=== PATIENT | female | born 1945 | race Caucasian/White ===

== ENCOUNTER 2016-12-13 09:49 | Emergency (ER) | payer MEDICARE, BC ==
[~2016-12-13] VITALS: Ht 157.5 cm; Wt 68.2 kg
[~2016-12-13 09:49] MED LIST: CHOL20003 PO; LEVO112T2 PO; MAGN300C2 PO; PRAV40TA76 PO; SENN1TAB PO
[2016-12-13 09:59] VITALS: Ht 157.5 cm; Wt 68.2 kg
[2016-12-13] MEDS ORDERED: LORAZEPAM 2 MG INJ IV ONE (11:30)
[2016-12-13 11:32] LABS: ADD SCAN DIFF NO
[2016-12-13 11:45] LABS: BASOPHIL # 0.1 10^3/ul (0.0-0.1); BASOPHILS % 0.7 % (0.0-2.0); EOSINOPHILS # 0.2 10^3/ul (0.0-0.5); EOSINOPHILS % 2.8 % (0.0-7.0); HEMATOCRIT 40.6 % (37.0-47.0); HEMOGLOBIN 13.1 g/dl (12.0-16.0); LYMPHOCYTES # 2.1 10^3/ul (0.8-2.9); LYMPHOCYTES % 23.9 % (15.0-51.0); MEAN CORPUSCULAR HEMOGLOBIN 29.8 pg (29.0-33.0); MEAN CORPUSCULAR HGB CONC 32.3 g/dl (32.0-37.0); MEAN CORPUSCULAR VOLUME 92.5 fl (82.0-101.0); MONOCYTE # 0.9 10^3/ul (0.3-0.9); MONOCYTES % 10.3 % (0.0-11.0); NEUTROPHIL # 5.3 10^3/ul (1.6-7.5); NEUTROPHILS % 61.9 % (39.0-77.0); PLATELET COUNT 468 10^3/UL (140-415); RED BLOOD COUNT 4.39 10^6/ul (4.20-5.40); RED CELL DISTRIBUTION WIDTH 13.4 % (11.5-14.5); WHITE BLOOD COUNT 8.6 10^3/ul (4.8-10.8)
[2016-12-13 11:48] LABS: POTASSIUM 4.1 mmol/L (3.5-5.1)
[2016-12-13 11:50] LABS: BILIRUBIN,INDIRECT 0.3 mg/dl (0-1.1); BILIRUBIN,TOTAL 0.3 mg/dl (0.2-1.3); CREATININE 0.53 mg/dl (0.44-1.00); PARTIAL THROMBOPLASTIN TIME 35.6 Sec (25.0-35.0)
[2016-12-13 11:51] LABS: CALCIUM 9.6 mg/dl (8.4-10.2)
--- NOTE | 2016-12-13 12:29 | RADRPT ---
PROCEDURE: US Lower extremity Venous. CLINICAL INDICATION: Right leg pain TECHNIQUE: Multiple sonographic images of the right lower extremity deep venous system was obtaine d utilizing grayscale, color-flow, compressive sonography and doppler imaging with augmentation. Th e images were reviewed on a PACS workstation. COMPARISON: None. FINDINGS: There is normal compressibility and flow within the right common femoral, superficial femoral, poste rior tibial, peroneal and popliteal veins. RPTAT: AA IMPRESSION: No sonographic evidence for deep venous thrombosis. .Osmar Yoder MD, MD Date Time Electronically viewed and signed by .Osmar Yoder MD, on 12/13/2016 12:29 .S/
[2016-12-13 12:45] LABS: INR 0.99; PROTIME 13.1 Sec (12.2-14.2)
--- NOTE | 2016-12-13 14:45 | ERD ---
ER Documentation Chief Complaint Date/Time DATE: 12/13/16 TIME: 14:38 Chief Complaint BROUGHT IN VIA PRIVATE AMBULANCE DUE TO RIGHT UPPER LEG PAIN HPI This is a very pleasant 71-year-old female that presents to the emergency department from [facility] where she has been for the past several weeks recovering from a syncope episode that resulted in a T12 compression fracture. The patient underwent multiple MRIs and a significant workup at [facility] at the onset of the syncope episode. She was seen by the orthopedic surgeon Dr. Mcqueen who is placed the patient in a back brace. The patient had repeat x-rays taken last week with her normal follow-up was instructed to continue to wear the brace for the next several weeks. The patient indicates that she presents to the emergency department today as this morning upon awakening she developed a severe pain in her right leg. She stated the pain began in her right buttocks and started to radiate down the lateral aspect of her right leg. She denies any saddle anesthesia. She no changes in her bladder or bowel frequency. She also developed some cramping of her left calf and was instructed to immediately come to the emergency department to be further evaluated. She has had no fevers no shaking or chills. She denies any shortness of breath at rest or exertion. She has no chest pain or pressure that radiates to the neck arm back or jaw ROS All systems reviewed and are negative except as per history of present illness. Medications Home Meds Reported Medications Magnesium Oxide/Mag Aa Chelate (Magnesium 300 Mg Capsule) 300 Mg Capsule, 300 MG PO 04/07/14 Pravastatin Sodium* (Pravastatin Sodium*) 40 Mg Tablet, 40 MG PO HS, TAB 04/07/14 Cholecalciferol (Vitamin D3) (VITAMIN D-3) 2,000 Unit Capsule, 2000 UNIT PO DAILY 04/07/14 Levothyroxine Sodium* (Synthroid*) 112 Mcg Tablet, 112 MCG PO AC BREAKFAST, TAB 04/07/14 Discontinued Reported Medications Sennosides/Docusate Sodium (STOOL SOFTENER TABLET) 1 Each Tablet, 1 EACH PO BID 04/07/14 Allergies Allergies: Uncoded Allergies: SULFA (Allergy, Unknown, 12/13/16) PMhx/Soc History of Surgery: Yes (04/07 S/P R JAS) Anesthesia Reaction: No Hx Neurological Disorder: No Hx Respiratory Disorders: No Hx Cardiac Disorders: No Hx Psychiatric Problems: No Hx Miscellaneous Medical Probl: Yes (ASTHMA, OSEOPOROSIS, DEPRESSION, HLD, HYPOTHYROID) Hx Alcohol Use: No Hx Substance Use: No Hx Tobacco Use: Yes Smoking Status: Current some day smoker Physical Exam Vitals Vital Signs Date Time Temp Pulse Resp B/P Pulse Ox O2 Delivery O2 Flow Rate FiO2 12/13/16 14:00 70 18 127/93 97 Room Air 12/13/16 09:59 98.1 90 18 124/98 98 Physical Exam Constitutional:Well-developed. Well-nourished. HEENT:Normocephalic. Atraumatic.Pupils were equal round reactive to light. Moist mucous membranes.No tonsillar exudates. Neck: No nuchal rigidity. No lymphadenopathy. No posterior cervical spine tenderness or step-offs. Respiratory: Not using accessory muscles of respiration.Lungs were clear to auscultation bilaterally. No rhonchi. No rales. No wheezing. Cardiovascular: Regular rate regular rhythm.No murmurs. No rubs were appreciated.S1, S2 normal. Distal pulses are palpable 2+ bilaterally. GI: Abdomen was soft. Nontender. Non Distended. No pulsatile abdominal masses or bruits. No rebound. No guarding. Bowel sounds were present and normal. Muscle skeletal: Full range of motion of both the upper and lower extremities bilaterally.Normal muscle tone.No assymetrical calf tenderness. Tenderness of the right calf with negative Homans sign. No tenderness with palpation or percussion of the thoracic or lumbar spinous processes and patient currently is in a back brace for her T12 compression fracture. Straight leg test positive on the right. Skin: No petechia, no purpura. No lesions on the palms or the soles of the feet. No maculopapular rash. No erythema warmth tenderness fluctuance or induration over the right calf or right upper extremity. NEURO: Patient was alert, awake, orientated x3.No facial droop. Gait not observed as patient is not able to ambulate at this time due to her compression fracture.Speech had regular rate and rhythm. No focal neurological deficits. Result Diagram: 12/13/16 1105 12/13/16 1105 Results 24 hrs Laboratory Tests Test 12/13/16 11:05 White Blood Count 8.610^3/ul Red Blood Count 4.3910^6/ul Hemoglobin 13.1g/dl Hematocrit 40.6% Mean Corpuscular Volume 92.5fl Mean Corpuscular Hemoglobin 29.8pg Mean Corpuscular Hemoglobin Concent 32.3g/dl Red Cell Distribution Width 13.4% Platelet Count 87139^3/UL Mean Platelet Volume 9.0fl Neutrophils % 61.9% Lymphocytes % 23.9% Monocytes % 10.3% Eosinophils % 2.8% Basophils % 0.7% Nucleated Red Blood Cells % 0.0/100WBC Neutrophils # 5.310^3/ul Lymphocytes # 2.110^3/ul Monocytes # 0.910^3/ul Eosinophils # 0.210^3/ul Basophils # 0.110^3/ul Nucleated Red Blood Cells # 0.010^3/ul Prothrombin Time 13.1Sec Prothrombin Time Ratio 1.0 INR International Normalized Ratio 0.99 Activated Partial Thromboplast Time 35.6Sec Sodium Level 137mmol/L Potassium Level 4.1mmol/L Chloride Level 101mmol/L Carbon Dioxide Level 28mmol/L Anion Gap 12 Blood Urea Nitrogen 9mg/dl Creatinine 0.53mg/dl Glucose Level 111mg/dl Calcium Level 9.6mg/dl Total Bilirubin 0.3mg/dl Direct Bilirubin 0.00mg/dl Indirect Bilirubin 0.3mg/dl Aspartate Amino Transf (AST/SGOT) 20IU/L Alanine Aminotransferase (ALT/SGPT) 21IU/L Alkaline Phosphatase 155IU/L Total Protein 8.0g/dl Albumin 4.0g/dl Globulin 4.00g/dl Albumin/Globulin Ratio 1.00 Current Medications Medications (Trade) Dose Ordered Sig/Carin Route PRN Reason Start Time Stop Time Status Last Admin Dose Admin Lorazepam (Ativan) 1 mg ONCE ONCE IV 12/13/16 11:30 12/13/16 11:31 DC 12/13/16 11:24 Procedures/MDM This is a very pleasant 71-year-old female presents to the emergency department with back pain radiating to the right leg. My differential diagnosis included but was not limited to spinal origins of the pain such as fracture, osteomyelitis, epidural abscess, neoplasm, spondylolishtesis, discogenic, cauda equina syndrome or musculoligamentous. Nonspinal causes such as AAA, upper UTI, renal colic, aortic dissection, abdominal neoplasm were also considered as an etiology into their pain. The patient no physical exam findings to suggest cellulitis. Venous duplex ultrasound the right lower extremity or and reviewed by myself indicated there is no evidence of deep vein thrombosis. Given that the patient has a known history of compression fracture I did obtain an MRI of the thoracic and lumbar spine and there is no evidence of cord compression. I explained to the patient that her symptoms could be a result of radiculopathy from the compression fracture and sciatica. There is no leukocytosis. The patient was refusing analgesic medication at this time. I did feel she can be safely discharged back to her rehab facility. Observation Note: Time: 4 hours Family Hx: No Hypertension Evaluation: Multiple exams showed improving symptoms and no evidence of cauda equina syndrome Departure Diagnosis: Primary Impression: Sciatica of right side Additional Impression: Lumbar radiculopathy, acute Condition: Serious JERRELL HARRIS Dec 13, 2016 14:45
--- NOTE | 2016-12-13 15:53 | RADRPT ---
PROCEDURE: MRI Thoracic spine without contrast CLINICAL INDICATION: BACK PAIN TECHNIQUE: An MRI of the thoracic spine was performed on a high resolution MRI scanner utilizing t he following sequences: Sagittal and axial T1 weighted, sagittal and axial T2 weighted, and sagitta l T2 fat suppression. COMPARISON: None FINDINGS: Partially imaged reversal of the cervical lordosis with multilevel cervical spinal canal stenosis. Normal thoracic kyphosis. Acute moderate T12 compression fracture with 2 mm bony retropulsion. There is 40% loss of vertebral height. No significant spinal canal stenosis. Heterogeneous appearance of the bone marrow is nonsp ecific. The thoracic cord demonstrates normal contour and signal intensity. No evidence of cord contusion or cord edema. Multilevel thoracic degenerative changes. IMPRESSION: Acute moderate T12 compression fracture with 2 mm bony retropulsion. No significant thoracic spinal canal stenosis. No evidence of cord contusion or cord compression. Multilevel thoracic degenerative changes. Partially imaged reversal of the cervical lordosis with multilevel cervical spinal canal stenosis. RPTAT: AA .Abraham Arguello MD, MD Date Time Electronically viewed and signed by .Abraham Arguello MD, on 12/13/2016 15:53 .T/
--- NOTE | 2016-12-13 15:56 | RADRPT ---
PROCEDURE: MRI lumbar spine without contrast CLINICAL INDICATION: Back pain TECHNIQUE: An high-resolution MRI of the lumbar spine was performed utilizing the following sequen nika: Sagittal and axial T1 weighted, sagittal and axial T2 weighted, and sagittal fat suppressed T2 . COMPARISON: None FINDINGS: Acute moderate T12 compression fracture. No acute lumbar compression fracture. Nonspecific heterogen eous marrow signal intensity. The conus medullaris terminates at L1-2. L1 - L2: The disk is preserved in height. There is no significant disk protrusion, spinal canal or foraminal stenosis. Facet arthropathy. L2 - L3: Mild disk height loss. Small disk osteophyte complex and facet arthropathy. No signific ant spinal canal stenosis. Mild bilateral foraminal narrowing. L3 - L4: Mild disk height loss and grade 1 anterolisthesis. Mild bilateral foraminal narrowing. Facet arthropathy. Borderline, mild spinal canal narrowing. L4 - L5: Mild disk height loss. Small disk bulge with central disk annular fissure. Combined wi th facet arthropathy, there is mild bilateral foraminal narrowing. No significant spinal canal sten osis. L5 - S1: Small disk bulge with central disk annular fissure. No significant spinal canal or digna inal narrowing. Facet arthropathy. Paraspinal soft tissues are unremarkable. IMPRESSION: Acute moderate T12 compression fracture. No acute lumbar compression fracture. Grade 1 anterolisthesis of L3-4. No high-grade spinal canal stenosis. Degenerative changes are detailed in the findings RPTAT: AA .Abraham Arguello MD, Date Time Electronically viewed and signed by .Abraham Arguello MD, on 12/13/2016 15:56 .T/
[2016-12-13 19:02] VITALS: BP 133/69; PULSE 89; RESP 16
== END 2016-12-13 19:04 | disposition home or self-care (01) ==
LOC: E/R 09:49
DX: M54.31 Sciatica, right side (principal); M54.16 Radiculopathy, lumbar region; J45.909 Unspecified asthma, uncomplicated; E03.9 Hypothyroidism, unspecified; F17.210 Nicotine dependence, cigarettes, uncomplicated
CPT/HCPCS: 72146; 72148; 80053; 85025; 85610; 85730; 93971; 96374; 99285; J2060